=== PATIENT | male | born 1960 | race African-American/Black ===

== ENCOUNTER 2017-09-30 14:42 | Emergency (ER) | payer OTHER ==
[2017-09-30 15:00] VITALS: BP 148/97; PULSE 87; TEMP 98.8; BMI 29.3
--- NOTE | 2017-09-30 15:28 | PDOC ---
History of Present Illness - General Chief Complaint: Ear Problem Stated Complaint: EAR PROBLEM Time Seen by Provider: 09/30/17 15:26 History Source: Patient Exam Limitations: No Limitations - History of Present Illness Initial Comments: 09/30/17 15:30 Complaints of pain and congestion to right ear. States feels is clogged with ear wax Timing/Duration: getting worse Severity: mild Past History - Travel Traveled outside of the country in the last 30 days: No Close contact w/someone who was outside of country & ill: No - Past Medical History Allergies/Adverse Reactions: Allergies Allergy/AdvReac Type Severity Reaction Status Date / Time No Known Allergies Allergy Verified 09/30/17 15:00 Home Medications: Ambulatory Orders NK [No Known Home Medication] 09/30/17 COPD: No - Surgical History Appendectomy: Yes - Suicide/Smoking/Psychosocial Hx Smoking History: Never smoked Review of Systems - Review of Systems Able to Perform ROS?: Yes Is the patient limited Hebrew proficient: Yes Constitutional: Yes: See HPI. No: Symptoms Reported, Fever, Malaise HEENTM: Yes: Symptoms Reported, See HPI, Ear Discharge (clooged with wax buildup ) Respiratory: Yes: Symptoms reported Integumentary: Yes: Symptoms Reported, See HPI All Other Systems: Reviewed and Negative *Physical Exam - Vital Signs Last Vital Signs Temp Pulse Resp BP Pulse Ox 98.8 F 87 18 148/97 99 09/30/17 14:56 09/30/17 14:56 09/30/17 14:56 09/30/17 14:56 09/30/17 14:56 - Physical Exam General Appearance: Yes: Nourished, Appropriately Dressed HEENT: positive: AKIN, TMs Normal (left TM intact and canal clear. Right TM occluded with hard packed cerumen. Unable to visualize TM), Pharynx Normal. negative: Normal ENT Inspection Neck: positive: Supple. negative: Tender Respiratory/Chest: positive: Lungs Clear, Normal Breath Sounds Musculoskeletal: positive: Normal Inspection Extremity: positive: Normal Capillary Refill, Normal Inspection, Normal Range of Motion Neurologic: positive: legal financial specialist II-XII NML intact, Fully Oriented, Alert, Normal Mood/ Affect, Normal Response, Motor Strength 5/5 Procedures - Additional Procedures Additional Procedures: other (external canal irrigation with peroxide, unsuccessfully dislodged cerumenosis. Instilled H2O2 and will cont this week for treatrment ) *DC/Admit/Observation/Transfer Diagnosis at time of Disposition: Ceruminosis Qualifiers: Laterality: right Qualified Code(s): H61.21 - Impacted cerumen, right ear - Discharge Dispostion Disposition: HOME Condition at time of disposition: Stable Admit: No - Referrals Referrals: Juan Del Valle MD [Primary Care Provider] - - Patient Instructions Printed Discharge Instructions: DI for Cerumen Impaction Additional Instructions: Do not use Q-tips, or any other small objects on the inner aspect of the ear canal - may only use Q-tips only on the outside to clean ears Ear wax may be packed by use of Q-tips to the inner canal and become hardened May use hydrogen peroxide 3 times a week to continued keep ear wax soft and able to expel Rinse in shower after hydrogen peroxide instillation to wash ear wax out [id number] preparations also assist in wax buildup Aloe up with private physician or ear nose and throat doctor as needed - Post Discharge Activity
== END 2017-09-30 16:26 | disposition home or self-care (01) ==
LOC: JERFT 14:42
PROC: 3E1B78Z Irrigation of Ear using Irrigating Substance, Via Natural or Artificial Opening (ICD-10-PCS; principal; 2017-09-30)
DX: H61.21 Impacted cerumen, right ear (principal)
CPT/HCPCS: 69209; 99281-25